=== PATIENT | male | born 1930 | race Caucasian/White ===

== ENCOUNTER 2017-02-01 11:24 | Emergency (ER) | payer MEDICARE ==
--- NOTE | ~2017-02-01 | CT4 ---
[facility] A Service of [facility] & [facility] RADIOLOGY TEXT RESULTS PATIENT: PIOTR PIEDRA LOCATION: SED : 32 UNIT #: [id number] AGE: [address]: Scott Price MD SEX: M ORDER DR: [id number] [address] [address] [id number] E MR#: [id number] Acc #: [id number] NAME: PIOTR PIEDRA : 1930 SEX: M STUDY DATE/TIME: 02/01/2017 UNIT: SED ROOM: STUDY DESCRIPTION: CT Abd and Pelv Wo Cont Attending Physician: Scott Price M.D. Ordering Physician: Scott Price M.D. Primary Care Physician: Kenton Lal MEDICAL IMAGING REPORT This report is preliminary unless electronic signature is present. EXAM CT abdomen and pelvis without contrast 02/01/2017 1239 hours HISTORY 86-year-old man complaining of pain and pressure in rectum for 3 days with no bowel movement. Difficulty urinating today. Chronic constipation problems for 30 years. TECHNIQUE Helical non-contrasted images were obtained from the lung bases through the pubic symphysis without oral or intravenous contrast. Sagittal and coronal reconstructions were performed. Total exam DLP 700 mGy/cm. This CT exam was performed with one or more of the following radiation dose reduction techniques: automatic exposure control, adjustment of mA and/or kV according to patient size, and iterative reconstruction. FINDINGS Images through the lung bases demonstrate emphysematous changes and mild chronic linear fibrotic changes. No acute pulmonary density or pleural effusion. The distal esophagus is normal. Images through the abdomen demonstrate a normal non-contrasted appearance to the liver, spleen, pancreas and bile ducts. There are small and dependent stones in the gallbladder, similar to prior study. There is no gallbladder wall thickening or pericholecystic fluid. The adrenal glands are normal. The kidneys demonstrate cysts bilaterally, largest in the lower poles measuring up to 7.1 cm on the right, previously 6.3 cm. Largest cyst in the lower pole left kidney measures up to 7.8 cm, previously 7.5 cm. No renal or ureteral stone is seen. There is no ureterectasis. There is a Raygoza catheter within the bladder which is decompressed. [facility] A Service of [facility] RADIOLOGY TEXT RESULTS PATIENT: PIOTR PIEDRA LOCATION: SED : 31 UNIT #: [id number] AGE: [address]: Scott Price MD SEX: M ORDER DR: The stomach is contracted unopacified. The stomach is normal. There is no small bowel distension or small bowel wall thickening. The terminal ileum is normal. The appendix is normal. The colon does not demonstrate increase stool in the right colon, transverse colon or descending colon. There is, however, increased stool in the rectosigmoid colon with distension of the rectum to a transverse diameter 7.1 cm. There is some ground-glass interstitial change in the perirectal fat posterior to the rectum suggesting inflammation. This is new from 08/10/2015. No definite wall thickening is seen. There is a fat-density left inguinal hernia. IMPRESSION 1. There is increase stool in the rectosigmoid colon only. The rectum is distended to a transverse diameter 7.1 cm. There is new linear injection of the fat posterior to the rectum in the presacral space suggesting an element of inflammation. There is no true fluid or fluid collection. There is no free air. 2. The small bowel is normal. 3. Gallstones in the gallbladder, unchanged. No evidence of cholecystitis. 4. Multiple bilateral renal cysts of varying sizes. The largest are exophytic from the lower poles of both kidneys and have increased slightly since the CT of 08/10/2015. No renal or ureteral calculi. No dilatation of the ureters. There is a Raygoza catheter in the bladder which is decompressed. 5. Diffuse atherosclerotic calcifications of the abdominal aorta with mild ectasia, unchanged. Dictated by... Vita Bolaños M.D. THIS IS AN ELECTRONICALLY VERIFIED REPORT Vita Bolaños M.D. at 02/02/2017 3:27 PM DARA/khushbu TD: 02/01/2017 19:49 JOB #: [id number] MEDICAL IMAGING REPORT Page 1 of 1
[~2017-02-01 11:24] MED LIST: ACETAMINOPHEN PO; AMIODARONE PO; AMOXICILLIN PO; ASPIRIN EC81 M1 PO; ASPIRIN PO; BI-FLEX PO; BIAXIN PO; CERTAGEN PO; CLARITIN10 M2 PO; CLARITIN10 MG PO; CRESTOR10 MG PO; DYRENIUM50 MG PO; FISH OIL 1,0001 CAP PO; FISH OIL 1,2001 CAP PO; FISH OIL 1,2001 EAC5 PO; FISH OIL SOFTGE1 CA1 PO; FLEXERIL10 M1 PO; METOPROLOL SUCC25 MG PO; MIRALAX255 GM PO; MOVE FREE ADVANCED; MOVE FREE PO; MULTIVITAMIN1 UDCAP PO; NITROLINGUAL12 G1 SL; NORVASC PO; OSTEO BI-FLEX1 EAC1 PO; OXYIR5 MG PO; PROPRANOLOL PO; PROTONIX PO; TOPROL XL PO; TRIAMTERENE-HCT1 TA7 PO; TRIAMTERENE/HCT1 TA3 PO; TRIAMTERENE/HCTZ PO; ULTRAM PO; VITAMIN D1000 UNI1 PO; VITAMIN D1000 UNIT PO; ZANTAC PO; ZANTAC150 M1 PO; ZOCOR PO; ZOCOR10 MG PO; ZOCOR20 MG PO; [UNRECOGNIZED DRUG - OTHER] PO
[2017-02-01 12:32] LABS: URINE APPEARANCE CLEAR; URINE BILIRUBIN NEG (NEG); URINE COLOR YELLOW; URINE GLUCOSE NEG (NORM); URINE KETONE NEG (NEG); URINE LEUKOCYTE ESTERASE NEG (NEG); URINE NITRATE NEG (NEG); URINE PH 6.5 (5-8); URINE PROTEIN NEG (NEG); URINE SOURCE CLEAN CATCH; URINE SPECIFIC GRAVITY 1.015 (1.003-1.035); URINE UROBILINOGEN 0.2 MG/DL (NORM)
[2017-02-01 12:33] LABS: MICRO INDICATED? NO; URINE BLOOD NEG (NEG)
== END 2017-02-01 14:48 | disposition home or self-care (01) ==
LOC: SED 11:24
PROVIDERS: Emergency Medicine
DX: K57.32 Diverticulitis of large intestine without perforation or abscess without bleeding (principal); I10 Essential (primary) hypertension; K21.9 Gastro-esophageal reflux disease without esophagitis; Z88.8 Allergy status to other drugs, medicaments and biological substances; Z79.82 Long term (current) use of aspirin; Z79.899 Other long term (current) drug therapy
CPT/HCPCS: 51702; 74176; 81003; 82270; 99284